=== PATIENT | male | born 1960 | race African-American/Black ===

== ENCOUNTER 2018-03-22 06:25 | Inpatient (IN) | payer BC ==
--- NOTE | 2018-03-22 08:17 | ER Document Report ---
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 He also has cloudy vision left eye more than the right. He had borderline diabetes in the past does not take any medications. No PCP he has not seen Dr. Nuñez for a very long time. Denies headache, fever, chest pain, shortness of breath, abdominal pain, kidney, or urinary problems. - Related Data Allergies/Adverse Reactions: No Known Allergies Allergy (Unverified 03/22/18 06:31) Past Medical History - General Information source: Patient - Social History Smoking Status: Never Smoker Frequency of alcohol use: None Drug Abuse: None Occupation: [employer] Lives with: Alone Family History: DM, Hypertension Patient has suicidal ideation: No Patient has homicidal ideation: No Endocrine Medical History: Reports: Other - "borderline diabetes" Renal/ Medical History: Reports: None Surgical Hx: Negative Review of Systems - Review of Systems Constitutional: No symptoms reported EENT: No symptoms reported Cardiovascular: No symptoms reported Respiratory: No symptoms reported Gastrointestinal: No symptoms reported Genitourinary: No symptoms reported Male Genitourinary: No symptoms reported Musculoskeletal: No symptoms reported Skin: No symptoms reported Hematologic/Lymphatic: No symptoms reported Neurological/Psychological: No symptoms reported Physical Exam - Vital signs Vitals: Temp Pulse Resp BP Pulse Ox 98.5 F 67 17 170/71 H 100 03/22/18 06:35 03/22/18 06:35 03/22/18 06:35 03/22/18 06:35 03/22/18 06:35 Interpretation: Normal - General General appearance: Appears well, Alert In distress: None - HEENT Head: Normocephalic, Atraumatic Eyes: Normal Conjunctiva: Normal Extraocular movements intact: Yes Pupils: PERRL Neck: Supple. No: Lymphadenopathy - Respiratory Respiratory status: No respiratory distress Chest status: Nontender Breath sounds: Normal Chest palpation: Normal - Cardiovascular Rhythm: Regular Heart sounds: Normal auscultation Murmur: No - Abdominal Inspection: Normal Distension: No distension Bowel sounds: Normal Tenderness: Nontender. No: Tender Organomegaly: No organomegaly - Back Back: Normal, Nontender. No: CVA tenderness - Extremities General upper extremity: Normal inspection, Nontender, Normal color, Normal ROM , Normal temperature General lower extremity: Normal inspection, Nontender, Normal color, Normal ROM , Normal temperature, Normal weight bearing. No: Temi's sign - Neurological Neuro grossly intact: Yes Cognition: Normal Orientation: AAOx4 Simin Coma Scale Eye Opening: Spontaneous Simin Coma Scale Verbal: Oriented Ismin Coma Scale Motor: Obeys Commands [place] Coma Scale Total: 15 Speech: Normal Motor strength normal: LUE, RUE, LLE, RLE Sensory: Normal Notes: walks with wide gate - Psychological Associated symptoms: Normal affect, Normal mood - Skin Skin Temperature: Warm Skin Moisture: Dry Skin Color: Normal Skin irregularity: negative: Rash Course - Re-evaluation Re-evalutation: 03/22/18 10:38 Patient has no PCP. He saw Dr. Nuñez long time ago. There is no other lab work in [email or web address] that I can compare this lab work to. Again I asked him he has no history of renal insufficiency or renal failure. CT of the head shows tiny chronic appearing lacunar infarcts in the right thalamus and right posterior deep periventricular white matter. The BUN is 58 the creatinine is 5.2. GFR is 14. CBC is normal. alk phos 272. I called Dr. Walters to see if she will consult on the patient she is on-call for the emergency department until 5 this patient needs to be admitted to the hospitalist group. 03/22/18 10:41 Patient is willing to be admitted. 03/22/18 10:52 Dr. Yeager told me to call Dr. Rouse who will admit if the solutions consultant dr. walters will be willing to care for the patient 03/22/18 11:04 Dr. Walters called back and wanted me to add a urine and a renal ultrasound she is willing to consult on this pt. I called Dr. SHANICE loaiza back and she will admit the patient to telemetry. Chest x-ray is negative and the EKG shows normal sinus rhythm mild st elevation to V2 only. dr vázquez evaluated the EKG - Vital Signs Vital signs: Temp Pulse Resp BP Pulse Ox 98.5 F 67 17 170/71 H 100 03/22/18 06:35 03/22/18 06:35 03/22/18 06:35 03/22/18 06:35 03/22/18 06:35 - Laboratory Result Diagrams: 03/22/18 09:40 03/22/18 09:40 Laboratory results interpreted by me: 03/22/18 03/22/18 09:40 09:40 Eosinophils % 6.6 H Potassium 5.3 H Chloride 114 H Carbon Dioxide 21 L BUN 58 H Creatinine 5.20 H Est GFR ( Amer) 14 L Est GFR (Non-Af Amer) 11 L AST 16 L Alkaline Phosphatase 272 H Discharge - Discharge Clinical Impression: Hyperkalemia, Hypertension Renal failure Qualifiers: Renal failure chronicity: acute Acute renal failure type: unspecified Qualified Code(s): N17.9 - Acute kidney failure, unspecified Condition: Stable Admitting Provider: Hospitalist Unit Admitted: Telemetry Referrals: LOCALMD,NO [NO LOCAL MD] - Follow up as needed
[2018-03-22] MEDS ORDERED: MECLIZINE HCL 25 MG TABLET PO ONE (09:47)
[2018-03-22 09:52] LABS: ABSOLUTE BASOPHILS # (AUTO) 0.1 10^3/uL (0.0-0.2); ABSOLUTE EOSINOPHILS # (AUTO) 0.3 10^3/uL (0.0-0.6); ABSOLUTE LYMPHOCYTES (AUTO) 1.5 10^3/uL (0.5-4.7); ABSOLUTE MONOCYTES (AUTO) 0.3 10^3/uL (0.1-1.4); ABSOLUTE NEUT (AUTO) 2.2 10^3/uL (1.7-8.2); BASOPHILS % (AUTO) 1.2 % (0-2); EOSINOPHILS % (AUTO) 6.6 % (0-6); HEMATOCRIT 42.3 % (37.9-51.0); HEMOGLOBIN 14.2 g/dL (13.5-17.0); LYMPHOCYTES % (AUTO) 35.3 % (13-45); MEAN CORPUSCULAR HEMOGLOBIN 29.3 pg (27.0-33.4); MEAN CORPUSCULAR HGB CONC 33.5 g/dL (32.0-36.0); MEAN CORPUSCULAR VOLUME 88 fl (80-97); MONOCYTES % (AUTO) 6.8 % (3-13); PLATELET COUNT 216 10^3/uL (150-450); RED BLOOD COUNT 4.84 10^6/uL (4.35-5.55); SEGMENTED NEUTROPHILS % (AUTO) 50.1 % (42-78); TOTAL CELLS COUNTED % (AUTO) 100 %; WHITE BLOOD COUNT 4.4 10^3/uL (4.0-10.5)
--- NOTE | 2018-03-22 10:04 | RADIOLOGY REPORT (SQ) ---
EXAM DESCRIPTION: CT HEAD WITHOUT COMPLETED DATE/TIME: 03/22/2018 9:54 am REASON FOR STUDY: headache COMPARISON: None. TECHNIQUE: Axial images acquired through the brain without intravenous contrast. Images reviewed wi th bone, brain and subdural windows. Additional sagittal and coronal reconstructions were generated. Images stored on PACS. All CT scanners at this facility use dose modulation, iterative reconstruction, and/or weight based d osing when appropriate to reduce radiation dose to as low as reasonably achievable (ALARA). [facility]: Dose Right [facility]: CareDose [facility]: Dose Right [facility]: Teradose 4D [facility]: Smart [employer] RADIATION DOSE: CT Rad equipment meets quality standard of care and radiation dose reduction techniq ues were employed. CTDIvol: 53.2 mGy. DLP: 1070 mGy-cm. mGy. LIMITATIONS: None. FINDINGS: VENTRICLES: Normal size and contour. CEREBRUM: No CT evidence of acute large territory ischemic change, acute intracranial hemorrhage, mas s effect, or midline shift. Tiny chronic appearing lacunar infarcts in the right thalamus image 19, and right posterior frontal deep periventricular white matter image 22. CEREBELLUM: No masses. No hemorrhage. No alteration of density. No evidence for acute infarction. EXTRAAXIAL SPACES: No fluid collections. No masses. ORBITS AND GLOBE: No intra- or extraconal masses. Normal contour of globe without masses. CALVARIUM: No fracture. PARANASAL SINUSES: No fluid or mucosal thickening. SOFT TISSUES: No mass or hematoma. OTHER: No other significant finding. IMPRESSION: No acute findings. Tiny chronic appearing lacunar infarcts in the right thalamus and ri ght posterior deep periventricular white matter EVIDENCE OF ACUTE STROKE: NO. COMMENT: Quality ID # [id number]: Final reports with documentation of one or more dose reduction techniques (e.g., Automated exposure control, adjustment of the mA and/or kV according to patient size, use of iterative reconstruction technique) TECHNICAL DOCUMENTATION: JOB ID: [id number] [employer]- All Rights Reserved Reading location - IP/workstation name: [email or web address]
[2018-03-22 10:11] LABS: ALANINE AMINOTRANSFERASE 26 U/L (21-72); ALBUMIN 4.3 g/dL (3.5-5.0); ALKALINE PHOSPHATASE 272 U/L (38-126); ANION GAP 10 (5-19); ASPARTATE AMINO TRANSFERASE 16 U/L (17-59); BILIRUBIN,DIRECT 0.3 mg/dL (0.0-0.4); BILIRUBIN,TOTAL 0.7 mg/dL (0.2-1.3); BLOOD UREA NITROGEN 58 mg/dL (7-20); CALCIUM 9.5 mg/dL (8.4-10.2); CARBON DIOXIDE 21 mmol/L (22-30); CHLORIDE 114 mmol/L (98-107); GLUCOSE 96 mg/dL (75-110); POTASSIUM 5.3 mmol/L (3.6-5.0); SODIUM 144.7 mmol/L (137-145); TOTAL PROTEIN 7.5 g/dL (6.3-8.2)
--- NOTE | 2018-03-22 11:00 | RADIOLOGY REPORT (SQ) ---
EXAM DESCRIPTION: CHEST 2 VIEWS COMPLETED DATE/TIME: 03/22/2018 10:51 am REASON FOR STUDY: new onset renal failure COMPARISON: None. EXAM PARAMETERS: NUMBER OF VIEWS: two views TECHNIQUE: Digital Frontal and Lateral radiographic views of the chest acquired. RADIATION DOSE: NA LIMITATIONS: none FINDINGS: LUNGS AND PLEURA: No opacities, masses or pneumothorax. No pleural effusion. MEDIASTINUM AND HILAR STRUCTURES: No masses or contour abnormalities. HEART AND VASCULAR STRUCTURES: Heart normal size. No evidence for failure. BONES: No acute findings. HARDWARE: None in the chest. OTHER: No other significant finding. IMPRESSION: NO ACUTE RADIOGRAPHIC FINDING IN THE CHEST. TECHNICAL DOCUMENTATION: JOB ID: [id number] [employer]- All Rights Reserved Reading location - IP/workstation name: [email or web address]
--- NOTE | 2018-03-22 12:29 | RADIOLOGY REPORT (SQ) ---
EXAM DESCRIPTION: U/S RETROPERITON (RENAL/AORTA) COMPLETED DATE/TIME: 03/22/2018 12:20 pm REASON FOR STUDY: new onset renal failure COMPARISON: None. TECHNIQUE: Dynamic and static grayscale images acquired of the kidneys and bladder and recorded on P ACS. Additional selected color Doppler and spectral images recorded. LIMITATIONS: None. FINDINGS: RIGHT KIDNEY: Normal size. Normal echogenicity. No solid or suspicious masses. No hydronep hrosis. No calcifications. LEFT KIDNEY: Normal size. Normal echogenicity. No solid or suspicious masses. No hydronephrosis. No calcifications. BLADDER: No masses. OTHER FINDINGS: No other significant finding. IMPRESSION: NORMAL RENAL AND BLADDER ULTRASOUND. TECHNICAL DOCUMENTATION: JOB ID: [id number] [employer]- All Rights Reserved Reading location - IP/workstation name: [email or web address]
[2018-03-22] MEDS ORDERED: ONDANSETRON HCL INJ/PF 4 MG/2 ML SDV IV PRN (13:38)
[2018-03-22] MEDS ORDERED: ALBUTEROL SULFATE 0.083% NEB 2.5 MG/3 ML AMPUL NEB PRN (13:38)
[2018-03-22] MEDS ORDERED: OXYCODONE-ACETAMINOPHEN 5-325 MG TABLET PO PRN (13:38)
[2018-03-22] MEDS ORDERED: ACETAMINOPHEN 325 MG TABLET PO PRN (13:38)
[2018-03-22] MEDS ORDERED: IPRATROPIUM/ALBUTEROL 0.5-2.5 MG/3 ML AMPUL NEB ONE (13:38)
--- NOTE | 2018-03-22 13:47 | PDOC H&P ---
History of Present Illness Admission Date/PCP: 03/22/18 13:26 Patient complains of: Dizziness, unsteady gait and blurred vision x 3days History of Present Illness: DILEEP VELEZ is a 57 year old male presents to the emergency room with complaints of dizziness, blurred vision, and unsteady gait. He was found to be in kidney failure with a creatinine of 5.2. Patient has no significant physician for years and so is difficult to say what his baseline kidney function is. He is on no medications and although his blood pressure was as high as 232/102 on initial presentation he is unaware of his baseline blood pressure. He said he was feeling pretty okay until about 3 days ago when he started noticing the symptoms. He denies any change in his urine output or any anorexia or metallic taste in his mouth. Patient has already been seen by the cash register mechanic on consult. Sonogram has been obtained which surprisingly reveals no evidence of echogenic kidneys or chronic medical disease. CT scan does show evidence of any chronic appearing lacunar infarct in the right thalamus Past Medical History Medical History: None Endocrine Medical History: Reports: Other - "borderline diabetes" Renal/ Medical History: Reports: None Past Surgical History Past Surgical History: Reports: None Social History Information Source: Patient Lives with: Alone Smoking Status: Never Smoker Frequency of Alcohol Use: Rare Hx Recreational Drug Use: No - Advance Directive Resuscitation Status: Full Code Family History Family History: DM, Hypertension Parental Family History Reviewed: Yes Children Family History Reviewed: NA Sibling(s) Family History Reviewed.: NA Medication/Allergy Home Medications: No Home Medications 03/22/18 Allergies/Adverse Reactions: No Known Allergies Allergy (Unverified 03/22/18 06:31) Review of Systems All systems: reviewed and no additional remarkable complaints except as stated Constitutional: ABSENT: chills, fever(s), headache(s), weight gain, weight loss Eyes: ABSENT: visual disturbances Ears: ABSENT: hearing changes Cardiovascular: ABSENT: chest pain, dyspnea on exertion, edema, orthropnea, palpitations Respiratory: ABSENT: cough, hemoptysis Gastrointestinal: ABSENT: abdominal pain, constipation, diarrhea, hematemesis, hematochezia, nausea, vomiting Genitourinary: ABSENT: dysuria, hematuria Musculoskeletal: ABSENT: joint swelling Integumentary: ABSENT: rash, wounds Neurological: ABSENT: abnormal gait, abnormal speech, confusion, dizziness, focal weakness, syncope Psychiatric: ABSENT: anxiety, depression, homidical ideation, suicidal ideation Endocrine: ABSENT: cold intolerance, heat intolerance, polydipsia, polyuria Hematologic/Lymphatic: ABSENT: easy bleeding, easy bruising Physical Exam Vital Signs: Temp Pulse Resp BP Pulse Ox 98.5 F 67 13 193/104 H 100 03/22/18 06:35 03/22/18 06:35 03/22/18 12:19 03/22/18 12:19 03/22/18 12:19 General appearance: PRESENT: no acute distress, well-developed, well-nourished Head exam: PRESENT: atraumatic, normocephalic Eye exam: PRESENT: conjunctiva pink, EOMI, PERRLA. ABSENT: scleral icterus Ear exam: PRESENT: normal external ear exam Mouth exam: PRESENT: moist, tongue midline Neck exam: ABSENT: carotid bruit, JVD, lymphadenopathy, thyromegaly Respiratory exam: PRESENT: clear to auscultation zina. ABSENT: rales, rhonchi, wheezes Cardiovascular exam: PRESENT: RRR. ABSENT: diastolic murmur, rubs, systolic murmur Pulses: PRESENT: normal dorsalis pedis pul Vascular exam: PRESENT: normal capillary refill GI/Abdominal exam: PRESENT: normal bowel sounds, soft. ABSENT: distended, guarding, mass, organolmegaly, rebound, tenderness Rectal exam: PRESENT: deferred Extremities exam: PRESENT: full ROM. ABSENT: calf tenderness, clubbing, pedal edema Neurological exam: PRESENT: alert, awake, oriented to person, oriented to place , oriented to time, oriented to situation, CN II-XII grossly intact. ABSENT: motor sensory deficit Psychiatric exam: PRESENT: appropriate affect, normal mood. ABSENT: homicidal ideation, suicidal ideation Skin exam: PRESENT: dry, intact, warm. ABSENT: cyanosis, rash Results Laboratory Results: 03/22/18 09:40 03/22/18 09:40 MCV 88 fl (80-97) 03/22/18 09:40 MCH 29.3 pg (27.0-33.4) 03/22/18 09:40 MCHC 33.5 g/dL (32.0-36.0) 03/22/18 09:40 RDW 14.0 % (11.5-14.0) 03/22/18 09:40 Seg Neutrophils % 50.1 % (42-78) 03/22/18 09:40 Lymphocytes % 35.3 % (13-45) 03/22/18 09:40 Monocytes % 6.8 % (3-13) 03/22/18 09:40 Eosinophils % 6.6 % (0-6) H 03/22/18 09:40 Basophils % 1.2 % (0-2) 03/22/18 09:40 Absolute Neutrophils 2.2 10^3/uL (1.7-8.2) 03/22/18 09:40 Absolute Lymphocytes 1.5 10^3/uL (0.5-4.7) 03/22/18 09:40 Absolute Monocytes 0.3 10^3/uL (0.1-1.4) 03/22/18 09:40 Absolute Eosinophils 0.3 10^3/uL (0.0-0.6) 03/22/18 09:40 Absolute Basophils 0.1 10^3/uL (0.0-0.2) 03/22/18 09:40 Chloride 114 mmol/L (98-107) H 03/22/18 09:40 Carbon Dioxide 21 mmol/L (22-30) L 03/22/18 09:40 Anion Gap 10 (5-19) 03/22/18 09:40 Est GFR ( Amer) 14 (>60) L 03/22/18 09:40 Est GFR (Non-Af Amer) 11 (>60) L 03/22/18 09:40 Glucose 96 mg/dL (75-110) 03/22/18 09:40 Calcium 9.5 mg/dL (8.4-10.2) 03/22/18 09:40 Total Bilirubin 0.7 mg/dL (0.2-1.3) 03/22/18 09:40 AST 16 U/L (17-59) L 03/22/18 09:40 ALT 26 U/L (21-72) 03/22/18 09:40 Alkaline Phosphatase 272 U/L (38-126) H 03/22/18 09:40 Total Protein 7.5 g/dL (6.3-8.2) 03/22/18 09:40 Albumin 4.3 g/dL (3.5-5.0) 03/22/18 09:40 Impressions: Head CT 03/22/18 09:45 IMPRESSION: No acute findings. Tiny chronic appearing lacunar infarcts in the right thalamus and right posterior deep periventricular white matter EVIDENCE OF ACUTE STROKE: NO. Chest X-Ray 03/22/18 10:45 IMPRESSION: NO ACUTE RADIOGRAPHIC FINDING IN THE CHEST. Renal Ultrasound 03/22/18 11:02 IMPRESSION: NORMAL RENAL AND BLADDER ULTRASOUND. Assessment & Plan - Diagnosis (1) Renal failure Qualifiers: Renal failure chronicity: acute Acute renal failure type: unspecified Is this a current diagnosis for this admission?: Yes Plan: Unclear if acute, chronic, acute on chronic. Will give IVF and monitor kidney function closely Appreciate nephrology input (2) Hyperkalemia Is this a current diagnosis for this admission?: Yes Plan: Secondary to the kidney failure. At this does not require any treatment and hopefully with the IV fluids his potassium will improve (3) Hypertensive urgency Is this a current diagnosis for this admission?: Yes Plan: Patient has been started on amlodipine and will continue with as needed hydralazine with a goal of gentle lowering of the blood pressure. Avoid nephrotoxic agents (4) Morbid obesity Is this a current diagnosis for this admission?: Yes Plan: Weight loss encouraged - Time Time Spent: 50 to 70 Minutes Medications reviewed and adjusted accordingly: Yes Anticipated discharge: Home Within: within 48 hours - Inpatient Certification Based on my medical assessment, after consideration of the patient's comorbidities, presenting symptoms, or acuity I expect that the services needed warrant INPATIENT care.: Yes Medical Necessity: Significant Comorbidiites Make Outpatient Treatment Too Risky , Need For IV Fluids, Risk of Complication if Not Cared For in Hospital
--- NOTE | 2018-03-22 13:48 | EKG REPORT ---
SEVERITY:- BORDERLINE ECG - SINUS RHYTHM BORDERLINE ST ELEVATION, ANTERIOR LEADS : Confirmed by: Chirag Mann MD 22-Mar-2018 13:48:00
[2018-03-22] MEDS ORDERED: HYDRALAZINE HCL INJ/PF 20 MG/1 ML SDV IV ONE (13:59)
[2018-03-22] MEDS ORDERED: HYDRALAZINE HCL INJ/PF 20 MG/1 ML SDV ONE (14:01)
[2018-03-22] MEDS ORDERED: HYDRALAZINE HCL INJ/PF 20 MG/1 ML SDV IV PRN (14:32)
[2018-03-22 14:57] LABS: APPEARANCE,URINE CLEAR; BILIRUBIN,URINE NEGATIVE (NEGATIVE); COLOR,URINE STRAW; GLUCOSE, URINE NEGATIVE (NEGATIVE); KETONES,URINE NEGATIVE (NEGATIVE); LEUKOCYTE ESTERASE,URINE NEGATIVE (NEGATIVE); NITRITE,URINE NEGATIVE (NEGATIVE); PROTEIN,URINE 100 mg/dL (NEGATIVE); URINE SPECIFIC GRAVITY 1.006; UROBILINOGEN,URINE NEGATIVE mg/dL (<2.0)
[2018-03-22] MEDS ORDERED: ENOXAPARIN SODIUM INJ 30 MG/0.3 ML DISP.SYRIN SUBCUT ONE (15:00)
[2018-03-22] MEDS ORDERED: AMLODIPINE BESYLATE 10 MG TABLET PO ONE (15:15)
--- NOTE | 2018-03-22 17:44 | PDOC CONSULTATION ---
Consultation Consult Date: 03/22/18 Attending physician:: AKOSUA LYNNE Consult reason:: I was asked to see this patient because of renal failure. History of Present Illness Admission Date/PCP: 03/22/18 13:26 History of Present Illness: DILEEP VELEZ is a 57 year old pleasant, -[place] male who presented to the emergency room today because of blurring of vision, dizziness and unsteady gait. Patient has not seen a doctor for at least 5-6 years. He said he previously seen Dr. Nuñez but never really followed up. He related that starting Sunday this week he started to have some blurry vision. On Sunday he thought his blood pressure was elevated because he just " feels that way". He does not have a blood pressure cuff at home so he does not know what his blood pressure has been running. By Sunday he said he woke up with the same blurring of vision associated with vertigo, dizziness, and unsteady gait. He said he he feels like he has been stumbling like a drunk so he told himself that he feet does not get better he would seek medical attention today. He denies any nausea, vomiting, chest pains, shortness of breath, voiding problems including dysuria or hematuria. He really denies any headache. He mentioned that he intentionally lost about 213 pounds over a year. When he came into the emergency room he was found to have very elevated blood pressure as high as 232/ 102. His kidney function was very abnormal with BUN of 58 and creatinine of 5.2 estimated GFR of 14. His potassium is also mildly elevated at 5.3. His urinalysis seems dilute with mild proteinuria of 100, moderate blood but no RBC and no leukocyte esterase. Further diagnostic show an clear chest x-ray and a CT scan of the head without any acute findings except for some possible previous tiny lacunar infarcts. The emergency room provider called me and I asked to have a kidney ultrasound done. This showed that the right kidney is 10.4 cm and left kidney at 10.39 cm without any hydronephrosis nor any other abnormalities. Currently the patient said he feels a little bit better with the blood pressure a little bit improved. He said he is eating and drinking fluids okay without any problems. He denies any known previous kidney problems including kidney stones. He did not feel that he is dehydrated. He denies any history of hepatitis infection including hepatitis A, B, and C. He denies any cardiac condition. He said he was possibly borderline diabetic years ago but really not sure. He denies any localized numbness no weakness. He denies any kind of rash. He seems to be otherwise clinically stable. Past Medical History Endocrine Medical History: Reports: Other - "borderline diabetes" Renal/ Medical History: Reports: None Past Surgical History Past Surgical History: Reports: None Social History Information Source: Patient Occupation: He works in the [employer] at [employer] for about 8 years Lives with: Alone Smoking Status: Never Smoker Frequency of Alcohol Use: Rare Hx Recreational Drug Use: No Hx Prescription Drug Abuse: No - Advance Directive Resuscitation Status: Full Code Family History Family History: DM - Monitor Parental Family History Reviewed: Yes Children Family History Reviewed: NA Sibling(s) Family History Reviewed.: Yes Medication/Allergy Home Medications: No Home Medications 03/22/18 Allergies/Adverse Reactions: No Known Allergies Allergy (Unverified 03/22/18 06:31) Review of Systems All systems: reviewed and no additional remarkable complaints except as stated Review of Systems: Constitutional: ABSENT: chills, fatigue, fever(s), headache(s), weight gain: Admits about 213 pounds of weight loss over a year Eyes: Admits visual disturbances including blurry vision Ears: ABSENT: hearing changes Cardiovascular: ABSENT: chest pain, dyspnea on exertion, edema, orthropnea, palpitations Respiratory: ABSENT: cough, dyspnea, hemoptysis Gastrointestinal: ABSENT: abdominal pain, constipation, diarrhea, hematemesis, hematochezia, nausea, vomiting Genitourinary: ABSENT: dysuria, hematuria Musculoskeletal: ABSENT: joint swelling Integumentary: ABSENT: rash, wounds Neurological: ABSENT: Abnormal speech, confusion, focal weakness, numbness, syncope; admits dizziness and unsteadiness of gait Psychiatric: ABSENT: anxiety, depression Endocrine: ABSENT: cold intolerance, heat intolerance, polydipsia, polyuria Hematologic/Lymphatic: ABSENT: easy bleeding, easy bruising, lymphadenopathy Physical Exam Vital Signs: Temp Pulse Resp BP Pulse Ox 97.9 F 68 16 192/77 H 100 03/22/18 15:27 03/22/18 15:27 03/22/18 15:27 03/22/18 15:27 03/22/18 15:27 Intake & Output 03/21/18 03/22/18 03/23/18 06:59 06:59 06:59 Weight 96 kg Exam: General appearance: no acute distress, cooperative, well-developed, well- nourished Head exam: PRESENT: atraumatic, normocephalic Eye exam: PRESENT: Conjunctiva [place], EOMI, PERRLA. ABSENT: conjunctival injection, scleral icterus Mouth exam: PRESENT: moist, neck supple, tongue midline Neck exam: PRESENT: full ROM. ABSENT: carotid bruit, JVD, lymphadenopathy, thyromegaly Respiratory exam: PRESENT: clear to auscultation bilaterally. ABSENT: rales, rhonchi, stridor, wheezes Cardiovascular exam: PRESENT: RRR, +S1, +S2. ABSENT: systolic murmur Pulses: PRESENT: normal radial pulses, normal dorsalis pedis pulses GI/Abdominal exam: PRESENT: normal bowel sounds, soft. ABSENT: guarding, mass, tenderness Rectal exam: deferred Extremities exam: PRESENT: full ROM. ABSENT: calf tenderness, pedal edema Musculoskeletal: PRESENT: full ROM. ABSENT: deformity Neurological exam: PRESENT: alert, Awake, Oriented to person, Oriented to place , Oriented to time, reflexes normal, CN II-XII grossly intact. Gait not tested ABSENT: motor sensory deficit Psychiatric exam: PRESENT: appropriate affect, normal mood. ABSENT: homicidal ideation, suicidal ideation Skin exam: PRESENT: intact, dry, warm. ABSENT: rash Results Laboratory Results: 03/22/18 14:05 Urine Color STRAW Urine Appearance CLEAR Urine pH 5.0 Ur Specific [place] 1.006 Urine Protein 100 H Urine Glucose (UA) NEGATIVE Urine Ketones NEGATIVE Urine Blood MODERATE H Urine Nitrite NEGATIVE Ur Leukocyte Esterase NEGATIVE Urine RBC (Auto) 0 Impressions: Head CT 03/22/18 09:45 IMPRESSION: No acute findings. Tiny chronic appearing lacunar infarcts in the right thalamus and right posterior deep periventricular white matter EVIDENCE OF ACUTE STROKE: NO. Chest X-Ray 03/22/18 10:45 IMPRESSION: NO ACUTE RADIOGRAPHIC FINDING IN THE CHEST. Renal Ultrasound 03/22/18 11:02 IMPRESSION: NORMAL RENAL AND BLADDER ULTRASOUND. Assessment & Plan - Diagnosis (1) Renal failure Qualifiers: Renal failure chronicity: acute Acute renal failure type: unspecified Qualified Code(s): N17.9 - Acute kidney failure, unspecified Is this a current diagnosis for this admission?: Yes Plan: Since we do not have any records this could be either acute, acute on chronic, or just merely chronic kidney disease. The acute component of renal failure if there is any is most likely secondary to hypertensive crisis. If this is acute we expect kidney function to improve as his blood pressure improves. The patient has mild proteinuria and although he is moderate blood in the urinalysis really does not have any clear-cut microhematuria. If he does have an underlying chronic kidney disease this is most likely secondary to hypertensive nephrosclerosis due to possibly uncontrolled hypertension for a long period of time. I doubt any acute glomerulonephritis given patient's presentation and initial workup. We need to continue to monitor the patient's kidney function in the next few days while here in the hospital. I will check his urine for protein current creatinine ratio, phosphorus, and intact PTH. I will hold off on any workup for any glomerulonephritis. Monitor intake and output. Agree with mild IV fluid hydration as ordered. Agree with initiating blood pressure medications including amlodipine and hydralazine. We will hold off on any DAPHNEY inhibitors, ARB's nor diuretics at this point. Patient does not need any urgent renal replacement therapy at this time. Avoid any nephrotoxic medications including NSAIDs. However I discuss dialysis with the patient. I explained what dialysis is and how it is done. I encouraged patient to think about it just in case he would need it. He said he will think about it. (2) Hyperkalemia Is this a current diagnosis for this admission?: Yes Plan: Mild due to renal failure. I would think that the IV fluids being given now would just improve this in time. Continue to monitor levels. (3) Hypertensive urgency Is this a current diagnosis for this admission?: Yes Plan: Needs to slowly control the blood pressure. I would recommend that the systolic blood pressure to be not lower than 160 in the next 24-48 hours to prevent any negative effect on her kidney function. After which we can slowly adjust goal in the next few days. Agree with amlodipine and hydralazine. Hold off on any DAPHNEY inhibitors, ARB's nor diuretics. - Notes Notes: Thank you very much for this consultation. I will follow the patient with you while he is in the hospital. - Time Time Spent: 50 to 70 Minutes
[2018-03-22 19:26] LABS: UR PRO/CREAT RATIO RESULT 1.1 mg/mg (0.0-0.2); URINE CREATININE 82.2 mg/dL (22-328); URINE PROTEIN 87.8 mg/dL (<12)
[2018-03-23 06:20] LABS: ANION GAP 10 (5-19); BLOOD UREA NITROGEN 57 mg/dL (7-20); CARBON DIOXIDE 21 mmol/L (22-30); CHLORIDE 112 mmol/L (98-107); GLUCOSE 99 mg/dL (75-110); PHOSPHORUS 3.8 mg/dL (2.5-4.5); POTASSIUM 5.7 mmol/L (3.6-5.0); SODIUM 143.3 mmol/L (137-145)
[2018-03-23] MEDS: AMLODIPINE BESYLATE 10 MG TABLET PO SCH (12:02)
[2018-03-23] MEDS: DOCUSATE SODIUM 100 MG CAPSULE PO SCH (12:02)
[2018-03-23] MEDS: ENOXAPARIN SODIUM INJ 30 MG/0.3 ML DISP.SYRIN SUBCUT SCH (12:02)
--- NOTE | 2018-03-23 12:59 | PDOC PROGRESS REPORT ---
Subjective Progress Note for:: 03/23/18 Subjective:: Patient denies any new symptoms. He is making urine and have instructed the nursing staff to monitor his urine output. There is no difficulty breathing. He does understand what is going on with his kidneys at this time. I will try and get him some brochures and information for the inform him about his kidney disease and hypertension. Reason For Visit: [facility] HYPERTENSIVE URGENCY Physical Exam Vital Signs: Temp Pulse Resp BP Pulse Ox 98.5 F 68 16 179/105 H 100 03/23/18 11:06 03/23/18 11:06 03/23/18 11:06 03/23/18 11:06 03/23/18 11:06 Intake & Output 03/22/18 03/23/18 03/24/18 06:59 06:59 06:59 Intake Total 1436 222 Output Total 825 Balance 1436 -603 Weight 96 kg General appearance: PRESENT: no acute distress, well-developed, well-nourished Head exam: PRESENT: atraumatic, normocephalic Eye exam: PRESENT: conjunctiva pink, EOMI, PERRLA. ABSENT: scleral icterus Ear exam: PRESENT: normal external ear exam Mouth exam: PRESENT: moist, tongue midline Neck exam: ABSENT: carotid bruit, JVD, lymphadenopathy, thyromegaly Respiratory exam: PRESENT: clear to auscultation zina. ABSENT: rales, rhonchi, wheezes Cardiovascular exam: PRESENT: RRR. ABSENT: diastolic murmur, rubs, systolic murmur Pulses: PRESENT: normal dorsalis pedis pul Vascular exam: PRESENT: normal capillary refill GI/Abdominal exam: PRESENT: normal bowel sounds, soft. ABSENT: distended, guarding, mass, organolmegaly, rebound, tenderness Rectal exam: PRESENT: deferred Extremities exam: PRESENT: full ROM. ABSENT: calf tenderness, clubbing, pedal edema Neurological exam: PRESENT: alert, awake, oriented to person, oriented to place , oriented to time, oriented to situation, CN II-XII grossly intact. ABSENT: motor sensory deficit Psychiatric exam: PRESENT: appropriate affect, normal mood. ABSENT: homicidal ideation, suicidal ideation Skin exam: PRESENT: dry, intact, warm. ABSENT: cyanosis, rash Results Laboratory Results: 03/23/18 05:10 03/22/18 03/23/1818 14:05 05:10 05:10 Sodium 143.3 Potassium 5.7 H Chloride 112 H Carbon Dioxide 21 L Anion Gap 10 BUN 57 H Creatinine 4.91 H Est GFR ( Amer) 15 L Est GFR (Non-Af Amer) 12 L Glucose 99 Calcium 9.0 Phosphorus 3.8 TSH 1.30 PTH Intact Urine Color STRAW Urine Appearance CLEAR Urine pH 5.0 Ur Specific [place] 1.006 Urine Protein 100 H Urine Glucose (UA) NEGATIVE Urine Ketones NEGATIVE Urine Blood MODERATE H Urine Nitrite NEGATIVE Ur Leukocyte Esterase NEGATIVE Urine RBC (Auto) 0 03/23/18 05:10 Sodium Potassium Chloride Carbon Dioxide Anion Gap BUN Creatinine Est GFR ( Amer) Est GFR (Non-Af Amer) Glucose Calcium Phosphorus TSH PTH Intact 462.6 H Urine Color Urine Appearance Urine pH Ur Specific [place] Urine Protein Urine Glucose (UA) Urine Ketones Urine Blood Urine Nitrite Ur Leukocyte Esterase Urine RBC (Auto) 03/23/18 05:10 NT-Pro-B Natriuret Pep 466 Impressions: Head CT 03/22/18 09:45 IMPRESSION: No acute findings. Tiny chronic appearing lacunar infarcts in the right thalamus and right posterior deep periventricular white matter EVIDENCE OF ACUTE STROKE: NO. Chest X-Ray 03/22/18 10:45 IMPRESSION: NO ACUTE RADIOGRAPHIC FINDING IN THE CHEST. Renal Ultrasound 03/22/18 11:02 IMPRESSION: NORMAL RENAL AND BLADDER ULTRASOUND. Assessment & Plan - Diagnosis (1) Renal failure Qualifiers: Renal failure chronicity: acute Acute renal failure type: unspecified Qualified Code(s): N17.9 - Acute kidney failure, unspecified Is this a current diagnosis for this admission?: Yes Plan: This is likely chronic may be with a component of acute decompensation. It is likely a hypertensive nephropathy although I do note that he has significant proteinuria which she may not necessarily be the case with hypertensive nephropathy. Creatinine is improved very slightly. We will have to continue to monitor to see how much recovery of his kidney function is feasible (2) Hyperkalemia Is this a current diagnosis for this admission?: Yes Plan: We will give Kayexalate as his potassium actually worsened from 5.3-5.7 today (3) Hypertensive urgency Is this a current diagnosis for this admission?: Yes Plan: We will continue to lower his blood pressure cautiously is an pretty convinced that this is a long-standing malignant hypertension. (4) Morbid obesity Is this a current diagnosis for this admission?: Yes Plan: Patient advised on the need to lose weight - Time Time Spent with patient: 15-24 minutes Medications reviewed and adjusted accordingly: Yes Anticipated discharge: Home Within: within 72 hours - Inpatient Certification Based on my medical assessment, after consideration of the patient's comorbidities, presenting symptoms, or acuity I expect that the services needed warrant INPATIENT care.: Yes Medical Necessity: Significant Comorbidiites Make Outpatient Treatment Too Risky , Need For IV Fluids
[2018-03-23] MEDS ORDERED: SODIUM POLYSTYRENE SULFONATE 15 GM/60 ML PO ONE (13:30)
[2018-03-24 05:51] LABS: ANION GAP 11 (5-19); BLOOD UREA NITROGEN 53 mg/dL (7-20); CALCIUM 8.6 mg/dL (8.4-10.2); CARBON DIOXIDE 19 mmol/L (22-30); CHLORIDE 113 mmol/L (98-107); GLUCOSE 108 mg/dL (75-110); SODIUM 143.1 mmol/L (137-145)
[2018-03-24 06:38] LABS: POTASSIUM 4.7 mmol/L (3.6-5.0)
[2018-03-24] MEDS: DEXTROSE 5%-1/2 NORMAL SALINE 1,000 ML IV PRN ×2 (07:41→18:03)
[2018-03-24] MEDS: AMLODIPINE BESYLATE 10 MG TABLET PO SCH (09:11)
[2018-03-24] MEDS: ENOXAPARIN SODIUM INJ 30 MG/0.3 ML DISP.SYRIN SUBCUT SCH (09:12)
[2018-03-24] MEDS: DOCUSATE SODIUM 100 MG CAPSULE PO SCH (09:12)
--- NOTE | 2018-03-24 12:52 | PDOC PROGRESS REPORT ---
Subjective Progress Note for:: 03/24/18 Subjective:: Patient denies any new symptoms. He is making urine and have instructed the nursing staff to monitor his urine output. There is no difficulty breathing. He does understand what is going on with his kidneys at this time. I will try and get him some brochures and information for the inform him about his kidney disease and hypertension. Patient continues to deny any new symptoms. His dizziness has improved. He is still making urine. Reason For Visit: KIARA/CKD HYPERTENSIVE URGENCY Physical Exam Vital Signs: Temp Pulse Resp BP Pulse Ox 98.7 F 75 16 167/68 H 100 03/24/18 11:09 03/24/18 11:09 03/24/18 11:09 03/24/18 11:09 03/24/18 11:09 Intake & Output 03/23/18 03/24/18 03/25/18 06:59 06:59 06:59 Intake Total 1436 3366 Output Total 2125 Balance 1436 1241 Weight 96 kg General appearance: PRESENT: no acute distress, well-developed, well-nourished Head exam: PRESENT: atraumatic, normocephalic Eye exam: PRESENT: conjunctiva pink, EOMI, PERRLA. ABSENT: scleral icterus Ear exam: PRESENT: normal external ear exam Mouth exam: PRESENT: moist, tongue midline Neck exam: ABSENT: carotid bruit, JVD, lymphadenopathy, thyromegaly Respiratory exam: PRESENT: clear to auscultation zina. ABSENT: rales, rhonchi, wheezes Cardiovascular exam: PRESENT: RRR. ABSENT: diastolic murmur, rubs, systolic murmur Pulses: PRESENT: normal dorsalis pedis pul Vascular exam: PRESENT: normal capillary refill GI/Abdominal exam: PRESENT: normal bowel sounds, soft. ABSENT: distended, guarding, mass, organolmegaly, rebound, tenderness Rectal exam: PRESENT: deferred Extremities exam: PRESENT: full ROM. ABSENT: calf tenderness, clubbing, pedal edema Neurological exam: PRESENT: alert, awake, oriented to person, oriented to place , oriented to time, oriented to situation, CN II-XII grossly intact. ABSENT: motor sensory deficit Psychiatric exam: PRESENT: appropriate affect, normal mood. ABSENT: homicidal ideation, suicidal ideation Skin exam: PRESENT: dry, intact, warm. ABSENT: cyanosis, rash Results Laboratory Results: 03/24/18 04:50 03/24/18 04:50 Sodium 143.1 Potassium 4.7 D Chloride 113 H Carbon Dioxide 19 L Anion Gap 11 BUN 53 H Creatinine 4.48 H Est GFR ( Amer) 17 L Est GFR (Non-Af Amer) 14 L Glucose 108 Calcium 8.6 03/22/18 14:05 Clean Catch Midstream Urine Culture - Final NO GROWTH 2 DAYS 03/23/18 05:10 NT-Pro-B Natriuret Pep 466 Impressions: Head CT 03/22/18 09:45 IMPRESSION: No acute findings. Tiny chronic appearing lacunar infarcts in the right thalamus and right posterior deep periventricular white matter EVIDENCE OF ACUTE STROKE: NO. Chest X-Ray 03/22/18 10:45 IMPRESSION: NO ACUTE RADIOGRAPHIC FINDING IN THE CHEST. Renal Ultrasound 03/22/18 11:02 IMPRESSION: NORMAL RENAL AND BLADDER ULTRASOUND. Assessment & Plan - Diagnosis (1) Renal failure Qualifiers: Renal failure chronicity: acute Acute renal failure type: unspecified Qualified Code(s): N17.9 - Acute kidney failure, unspecified Is this a current diagnosis for this admission?: Yes Plan: This is probably chronic stage IV. Although patient definitely needs no dialysis at this time this may be somewhat down the road though. I doubt that his kidney function is going to get much better from here. Luckily he is nonoliguric and in fact is currently in a cumulative positive fluid balance. Will discuss with nephrology as to further plans (2) Hyperkalemia Is this a current diagnosis for this admission?: Yes Plan: Secondary to kidney failure he did receive a dose of Kayexalate yesterday and his potassium is 4.7 today (3) Hypertensive urgency Is this a current diagnosis for this admission?: Yes Plan: Blood pressure continues to improve. We have been slow to drastically control he due to autoregulation but at this time I think you can be a little bit less cautious. I will add low dose of hydralazine to scheduled regimen to try to get his blood pressure better controlled (4) Morbid obesity Is this a current diagnosis for this admission?: Yes Plan: Patient advised on need to lose weight - Time Time Spent with patient: 15-24 minutes Medications reviewed and adjusted accordingly: Yes Anticipated discharge: Home Within: within 48 hours - Inpatient Certification Based on my medical assessment, after consideration of the patient's comorbidities, presenting symptoms, or acuity I expect that the services needed warrant INPATIENT care.: Yes Medical Necessity: Need For IV Fluids, Risk of Complication if Not Cared For in Hospital
[2018-03-24] MEDS: HYDRALAZINE HCL 25 MG TABLET PO SCH ×2 (13:27→21:35)
[2018-03-25] MEDS: HYDRALAZINE HCL 25 MG TABLET PO SCH (05:32)
[2018-03-25 05:33] LABS: ANION GAP 9 (5-19); BLOOD UREA NITROGEN 50 mg/dL (7-20); CALCIUM 8.5 mg/dL (8.4-10.2); CARBON DIOXIDE 22 mmol/L (22-30); CHLORIDE 112 mmol/L (98-107); GLUCOSE 101 mg/dL (75-110); POTASSIUM 4.6 mmol/L (3.6-5.0)
[2018-03-25] MEDS: ENOXAPARIN SODIUM INJ 30 MG/0.3 ML DISP.SYRIN SUBCUT SCH (09:38)
[2018-03-25] MEDS: DOCUSATE SODIUM 100 MG CAPSULE PO SCH (09:41)
[2018-03-25] MEDS: AMLODIPINE BESYLATE 10 MG TABLET PO SCH (09:41)
[2018-03-25] MEDS ORDERED: HYDRALAZINE HCL 25 MG TABLET PO SCH (10:40)
[2018-03-25] MEDS ORDERED: CALCITRIOL 0.25 MCG CAPSULE PO SCH (10:45)
--- NOTE | 2018-03-25 18:32 | PDOC DISCHARGE SUMMARY ---
General - Admit/Disc Date/PCP Admission Date/Primary Care Provider: 03/22/18 13:26 Discharge Date: 03/25/18 - Discharge Diagnosis (1) Renal failure Is this a current diagnosis for this admission?: Yes (2) Hyperkalemia Is this a current diagnosis for this admission?: Yes (3) Hypertensive urgency Is this a current diagnosis for this admission?: Yes (4) Morbid obesity Is this a current diagnosis for this admission?: Yes (5) Chronic kidney disease, stage IV (severe) Is this a current diagnosis for this admission?: Yes (6) Secondary hyperparathyroidism Is this a current diagnosis for this admission?: Yes - Additional Information Resuscitation Status: Full Code Discharge Diet: Other (Comments) - Pre Renal Discharge Activity: Activity As Tolerated Prescriptions: Amlodipine Besylate [Norvasc 10 mg Tablet] 10 mg PO DAILY #30 tablet Calcitriol [Rocaltrol 0.25 mcg Capsule] 0.25 mcg PO ASDIR #30 capsule Hydralazine HCl [Apresoline 25 mg Tablet] 50 mg PO Q8 #180 tablet Home Medications: Amlodipine Besylate [Norvasc 10 mg Tablet] 10 mg PO DAILY #30 tablet 03/25/18 Calcitriol [Rocaltrol 0.25 mcg Capsule] 0.25 mcg PO ASDIR #30 capsule 03/25/18 Hydralazine HCl [Apresoline 25 mg Tablet] 50 mg PO Q8 #180 tablet 03/25/18 History of Present Illness Patient complains of: Dizziness as well as unsteady gait for a few days prior to admission History of Present Illness: DILEEP VELEZ is a 57 year old male presents to the emergency room with complaints of dizziness, blurred vision, and unsteady gait. He was found to be in kidney failure with a creatinine of 5.2. Patient has no significant physician for years and so is difficult to say what his baseline kidney function is. He is on no medications and although his blood pressure was as high as 232/102 on initial presentation he is unaware of his baseline blood pressure. He said he was feeling pretty okay until about 3 days ago when he started noticing the symptoms. He denies any change in his urine output or any anorexia or metallic taste in his mouth. Patient has already been seen by the lightout examiner on consult. Sonogram has been obtained which surprisingly reveals no evidence of echogenic kidneys or chronic medical disease. CT scan does show evidence of any chronic appearing lacunar infarct in the right thalamus Hospital Course Hospital Course: Patient presented to the emergency room with the above complaints. Was found to be in renal failure although was not clear if this is acute on chronic as patient had no recent hospital visit or doctor's visit. He was also found to have a systolic blood pressure of about 200 on initial presentation. Ultrasound of the kidneys done reveals no acute findings a urinalysis was grossly negative except for some proteinuria. There was no evidence of any hydronephrosis and there was no evidence of any infection. Patient was seen by lightout examiner on consultation. Please see the consultation notes for full result. Patient was treated with intravenous fluids but the creatinine only improved a little. His blood pressure of was also cautiously reduced he has been placed on 2 antihypertensives with further outpatient adjustment recommended. Patient was given information on hypertension as well as chronic kidney disease. At this time it appears that this is CKD likely stage IV and he will need dialysis in the near future but none indicated currently. As such he is being discharged home with instructions to follow-up with the lightout examiner for further management. Patient was also hypokalemic and he received Kayexalate which has brought down his potassium. He has been advised on the proper diet for his kidney function. He has otherwise remained hemodynamically stable and at this time with no further interventions been planned he has been discharged home for outpatient follow-up Physical Exam Vital Signs: Temp Pulse Resp BP Pulse Ox 98.5 F 81 14 170/89 H 100 03/25/18 12:19 03/25/18 14:00 03/25/18 12:19 03/25/18 12:19 03/25/18 12:19 Intake & Output 03/24/18 03/25/18 03/26/18 06:59 06:59 06:59 Intake Total 3366 4335 1200 Output Total 2125 3420 Balance 2433 685 9825 Weight 100.3 kg General appearance: PRESENT: no acute distress, well-developed, well-nourished Head exam: PRESENT: atraumatic, normocephalic Eye exam: PRESENT: conjunctiva pink, EOMI, PERRLA. ABSENT: scleral icterus Ear exam: PRESENT: normal external ear exam Mouth exam: PRESENT: moist, tongue midline Neck exam: ABSENT: carotid bruit, JVD, lymphadenopathy, thyromegaly Respiratory exam: PRESENT: clear to auscultation zina. ABSENT: rales, rhonchi, wheezes Cardiovascular exam: PRESENT: RRR. ABSENT: diastolic murmur, rubs, systolic murmur Pulses: PRESENT: normal dorsalis pedis pul Vascular exam: PRESENT: normal capillary refill GI/Abdominal exam: PRESENT: normal bowel sounds, soft. ABSENT: distended, guarding, mass, organolmegaly, rebound, tenderness Rectal exam: PRESENT: deferred Extremities exam: PRESENT: full ROM. ABSENT: calf tenderness, clubbing, pedal edema Neurological exam: PRESENT: alert, awake, oriented to person, oriented to place , oriented to time, oriented to situation, CN II-XII grossly intact. ABSENT: motor sensory deficit Psychiatric exam: PRESENT: appropriate affect, normal mood. ABSENT: homicidal ideation, suicidal ideation Skin exam: PRESENT: dry, intact, warm. ABSENT: cyanosis, rash Results Laboratory Results: 03/25/18 03:34 03/25/18 03:34 Sodium 143.0 Potassium 4.6 Chloride 112 H Carbon Dioxide 22 Anion Gap 9 BUN 50 H Creatinine 4.35 H Est GFR ( Amer) 17 L Est GFR (Non-Af Amer) 14 L Glucose 101 Calcium 8.5 03/23/18 05:10 NT-Pro-B Natriuret Pep 466 Impressions: Head CT 03/22/18 09:45 IMPRESSION: No acute findings. Tiny chronic appearing lacunar infarcts in the right thalamus and right posterior deep periventricular white matter EVIDENCE OF ACUTE STROKE: NO. Chest X-Ray 03/22/18 10:45 IMPRESSION: NO ACUTE RADIOGRAPHIC FINDING IN THE CHEST. Renal Ultrasound 03/22/18 11:02 IMPRESSION: NORMAL RENAL AND BLADDER ULTRASOUND. Qualifiers - * PATIENT BEING DISCHARGED WITH ANY OF THE FOLLOWING DIAGNOSIS: No Plan Time Spent: Greater than 30 Minutes
--- NOTE | 2018-03-25 18:33 | PDOC PROGRESS REPORT ---
Subjective Progress Note for:: 03/25/18 Subjective:: Patient has been hemodynamically stable over the weekend. He also feels better in terms of his symptoms and vision. He is eating okay. His blood pressure has been improved appropriately with slow and cautious decrease in the blood pressure. He does not have any other further complaints. Reason For Visit: [facility] HYPERTENSIVE URGENCY Physical Exam Vital Signs: Temp Pulse Resp BP Pulse Ox 98.5 F 81 14 170/89 H 100 03/25/18 12:19 03/25/18 14:00 03/25/18 12:19 03/25/18 12:19 03/25/18 12:19 Intake & Output 03/24/18 03/25/18 03/26/18 06:59 06:59 06:59 Intake Total 3366 4335 1200 Output Total 2125 3420 Balance 0523 505 5872 Weight 100.3 kg Exam: General appearance: PRESENT: no acute distress, cooperative, well-developed, well-nourished Head exam: PRESENT: atraumatic, normocephalic Eye exam: PRESENT: conjunctiva pink, PERRLA. ABSENT: scleral icterus Neck exam: ABSENT: JVD Respiratory exam: PRESENT: Normal breath sounds. ABSENT: crackles, rales, rhonchi, unlabored, wheezes Cardiovascular exam: PRESENT: Regular rate rhythm -+S1, +S2. ABSENT: diastolic murmur, systolic murmur GI/Abdominal exam: PRESENT: normal bowel sounds, soft. ABSENT: guarding, mass, tenderness Extremities exam: ABSENT: No edema Neurological exam: PRESENT: alert, awake, oriented to person, place and time. Skin exam: PRESENT: dry, warm, Results Laboratory Results: 03/25/18 03:34 03/25/18 03:34 Sodium 143.0 Potassium 4.6 Chloride 112 H Carbon Dioxide 22 Anion Gap 9 BUN 50 H Creatinine 4.35 H Est GFR ( Amer) 17 L Est GFR (Non-Af Amer) 14 L Glucose 101 Calcium 8.5 03/23/18 05:10 NT-Pro-B Natriuret Pep 466 Impressions: Head CT 03/22/18 09:45 IMPRESSION: No acute findings. Tiny chronic appearing lacunar infarcts in the right thalamus and right posterior deep periventricular white matter EVIDENCE OF ACUTE STROKE: NO. Chest X-Ray 03/22/18 10:45 IMPRESSION: NO ACUTE RADIOGRAPHIC FINDING IN THE CHEST. Renal Ultrasound 03/22/18 11:02 IMPRESSION: NORMAL RENAL AND BLADDER ULTRASOUND. Assessment & Plan - Diagnosis (1) Renal failure Qualifiers: Renal failure chronicity: acute on chronic Acute renal failure type: unspecified Chronic kidney disease stage: stage 4 (severe) Qualified Code(s) : N17.9 - Acute kidney failure, unspecified; N18.4 - Chronic kidney disease, stage 4 (severe); N18.4 - Chronic kidney disease, stage 4 (severe); N18.4 - Chronic kidney disease, stage 4 (severe); N18.4 - Chronic kidney disease, stage 4 (severe) Is this a current diagnosis for this admission?: Yes Plan: Patient presented with a very mild acute on chronic kidney disease with most likely underlying chronic kidney disease at stage IV. This is most likely secondary to hypertensive nephrosclerosis due to undiagnosed and untreated severe hypertension. Patient has nonnephrotic proteinuria with urine protein to creatinine ratio of 1.1. There is no evidence of any other acute glomerulonephritis. Currently I think the patient is clinically stable and kidney function seems to be stabilizing at stage IV. He does not need to be initiated with renal replacement therapy at this time but will most likely need to be started on renal replacement therapy soon. Since the patient is a stable I talked to Dr. Harlan zavaleta earlier this morning, I think he could be discharged and to follow- up with me in the next 2-3 weeks. I talked with the patient regarding the whole spectrum of chronic kidney disease and the need for close monitoring and preparation for the ventral need of renal replacement therapy. Patient understood and agreed to follow-up with me as an outpatient. (2) Hyperkalemia Is this a current diagnosis for this admission?: Yes Plan: Resolved. (3) Hypertensive urgency Is this a current diagnosis for this admission?: Yes Plan: Improved with amlodipine and hydralazine. He can go home on these 2 medications. (4) Secondary hyperparathyroidism Is this a current diagnosis for this admission?: Yes Plan: Start the patient on calcitriol 0.25 mcg 3 times a week and he needs to continue on this upon discharge. - Notes Notes: Patient may be safely discharged home today or tomorrow. Patient to follow-up with me in 2-3 weeks. - Time Time with patient: 15-25 minutes
[2018-03-25 18:59] VITALS: BP 192/77
== END 2018-03-25 19:52 | disposition home or self-care (01) | DRG 683 ==
LOC: ER 06:25 → EH 13:26 → 4W 15:15 → 4S 16:38
PROVIDERS: ADMIT Internal Medicine; ATTEND Internal Medicine
PROC: 3E0F73Z Introduction of Anti-inflammatory into Respiratory Tract, Via Natural or Artificial Opening (ICD-10-PCS; principal; 2018-03-23)
DX: N17.9 Acute kidney failure, unspecified (principal); Z68.41 Body mass index [BMI] 40.0-44.9, adult; I12.9 Hypertensive chronic kidney disease with stage 1 through stage 4 chronic kidney disease, or unspecified chronic kidney disease; N18.4 Chronic kidney disease, stage 4 (severe); N25.81 Secondary hyperparathyroidism of renal origin; I16.0 Hypertensive urgency; E87.5 Hyperkalemia; E66.01 Morbid (severe) obesity due to excess calories; Z83.3 Family history of diabetes mellitus; Z82.49 Family history of ischemic heart disease and other diseases of the circulatory system
CPT/HCPCS: 36415; 70450; 71046; 76770; 80048; 80053; 81001; 82570; 83880; 83970; 84100; 84156; 84443; 85025; 87086; 93005; 93010; 99285; J0360; J1650

== ENCOUNTER → 2018-06-14 | Outpatient (CLI) | payer BC ==
[2018-06-14 09:24] LABS: ABSOLUTE BASOPHILS # (AUTO) 0.1 10^3/uL (0.0-0.2); ABSOLUTE EOSINOPHILS # (AUTO) 0.4 10^3/uL (0.0-0.6); ABSOLUTE LYMPHOCYTES (AUTO) 1.2 10^3/uL (0.5-4.7); ABSOLUTE MONOCYTES (AUTO) 0.3 10^3/uL (0.1-1.4); ABSOLUTE NEUT (AUTO) 2.6 10^3/uL (1.7-8.2); BASOPHILS % (AUTO) 1.1 % (0-2); EOSINOPHILS % (AUTO) 8.6 % (0-6); HEMATOCRIT 38.3 % (37.9-51.0); HEMOGLOBIN 12.8 g/dL (13.5-17.0); LYMPHOCYTES % (AUTO) 26.4 % (13-45); MEAN CORPUSCULAR HEMOGLOBIN 29.4 pg (27.0-33.4); MEAN CORPUSCULAR HGB CONC 33.5 g/dL (32.0-36.0); MEAN CORPUSCULAR VOLUME 88 fl (80-97); MONOCYTES % (AUTO) 7.4 % (3-13); PLATELET COUNT 214 10^3/uL (150-450); RED BLOOD COUNT 4.36 10^6/uL (4.35-5.55); RED CELL DISTRIBUTION WIDTH 13.9 % (11.5-14.0); SEGMENTED NEUTROPHILS % (AUTO) 56.5 % (42-78); TOTAL CELLS COUNTED % (AUTO) 100 %; WHITE BLOOD COUNT 4.6 10^3/uL (4.0-10.5)
[2018-06-14 09:52] LABS: ANION GAP 8 (5-19); APPEARANCE,URINE CLEAR; BILIRUBIN,URINE NEGATIVE (NEGATIVE); BLOOD UREA NITROGEN 49 mg/dL (7-20); CARBON DIOXIDE 20 mmol/L (22-30); CHLORIDE 111 mmol/L (98-107); CHOLESTEROL 198.67 mg/dL (0-200); COLOR,URINE STRAW; GLUCOSE 78 mg/dL (75-110); GLUCOSE, URINE NEGATIVE (NEGATIVE); KETONES,URINE NEGATIVE (NEGATIVE); LEUKOCYTE ESTERASE,URINE NEGATIVE (NEGATIVE); NITRITE,URINE NEGATIVE (NEGATIVE); PHOSPHORUS 4.1 mg/dL (2.5-4.5); PROTEIN,URINE 30 mg/dL (NEGATIVE); SODIUM 138.5 mmol/L (137-145); TRIGLYCERIDES 36 mg/dL (<150); URINE SPECIFIC GRAVITY 1.008; UROBILINOGEN,URINE NEGATIVE mg/dL (<2.0)
[2018-06-14 10:05] LABS: DIRECT LDL 81 mg/dL (<100)
[2018-06-14 10:12] LABS: POTASSIUM 6.5 mmol/L (3.6-5.0)
== END ==
LOC: OD 08:50
PROVIDERS: ATTEND Internal Medicine Nephrology
DX: I12.9 Hypertensive chronic kidney disease with stage 1 through stage 4 chronic kidney disease, or unspecified chronic kidney disease (principal); N18.3 Chronic kidney disease, stage 3 (moderate)
CPT/HCPCS: 36415; 80048; 80061; 81001; 83970; 84100; 85025